=== PATIENT | male | born 1945 | race African-American/Black ===

== ENCOUNTER 2021-08-26 08:15 | Emergency (ER) | payer MEDICARE ==
[2021-08-26] MEDS ORDERED: traMADol HCl 50 MG TAB ONE (09:52)
[2021-08-26] MEDS ORDERED: predniSONE 20 MG TAB ONE (09:53)
[2021-08-26] MEDS ORDERED: Ketorolac Tromethamine 30 MG/ML VIAL ONE (09:53)
== END 2021-08-26 10:00 | disposition home or self-care (01) ==
LOC: MADERS 08:15
DX: M25.551 Pain in right hip (principal); K21.9 Gastro-esophageal reflux disease without esophagitis; E78.5 Hyperlipidemia, unspecified; E11.40 Type 2 diabetes mellitus with diabetic neuropathy, unspecified; I10 Essential (primary) hypertension; Z79.899 Other long term (current) drug therapy; Z79.84 Long term (current) use of oral hypoglycemic drugs
CPT/HCPCS: 96372; 99283; J1885; J7512